=== PATIENT | male | born 1995 | race Hispanic/Latino ===

== ENCOUNTER 2017-05-10 10:47 | Emergency (ER) | payer SELFPAY ==
[2017-05-10] MEDS ORDERED: Erythromycin Base 0.5% Ophth Oint 3.5 gm Tube ONE (12:04)
[2017-05-10] MEDS ORDERED: Sulfameth/Trimethoprim DS 800-160mg TAB ONE (12:04)
== END 2017-05-10 12:11 | disposition home or self-care (01) ==
LOC: ERS 10:47
DX: H10.9 Unspecified conjunctivitis (principal)
CPT/HCPCS: 99283